=== PATIENT | male | born 1985 | race Caucasian/White ===

== ENCOUNTER 2016-06-06 02:31 | Emergency (ER) | payer MEDICAID ==
[2016-06-06 02:42] VITALS: RESP 20; TEMP 97.7
--- NOTE | 2016-06-06 02:42 | CPEKG ---
Heart Rate: 72 RR Interval: 833 P-R Interval: 160 QRSD Interval: 86 QT Interval: 368 QTC Interval: 403 P [place]: 50 QRS [place]: 21 T Wave [place]: 31 EKG Severity - NORMAL ECG - EKG Impression: SINUS RHYTHM Electronically Signed By: Rafiq Maynard 06-Jun-2016 03:41:59
--- NOTE | 2016-06-06 03:38 | EDPHY ---
H & P Stated Complaint: chest Pain Time Seen by Provider: 06/06/16 03:32 HPI/ROS: CHIEF COMPLAINT: Chest pain HISTORY OF PRESENT ILLNESS: Patient is a 31-year-old homeless man who comes to the emergency department complaining of chest pain. [place] because he began having chest pain. He denies having any significant medical history. He states the pain is now completely resolved. This is never happened to him before. He denies any recent illnesses or infection or trauma. REVIEW OF SYSTEMS: Constitutional: denies: chills, fever, recent illness, recent injury EENTM: denies: blurred vision, double vision, nose congestion Respiratory: denies: cough, shortness of breath Cardiac: See HPI, denies: irregular heart rate, lightheadedness, palpitations Gastrointestinal/Abdominal: denies: abdominal pain, diarrhea, nausea, vomiting, blood streaked stools Genitourinary: denies: dysuria, frequency, hematuria, pain Musculoskeletal: denies: joint pain, muscle pain Skin: denies: lesions, rash, jaundice, bruising Neurological: denies: headache, numbness, paresthesia, tingling, dizziness, weakness Hematologic/Lymphatic: denies: blood clots, easy bleeding, easy bruising Immunologic/allergic: denies: HIV/AIDS, transplant EXAM: GENERAL: Well-appearing, well-nourished and in no acute distress. HEAD: Atraumatic, normocephalic. EYES: Pupils equal round and reactive to light, extraocular movements intact, sclera anicteric, conjunctiva are normal. ENT: TMs normal, nares patent, oropharynx clear without exudates. Moist mucous membranes. NECK: Normal range of motion, supple without lymphadenopathy or JVD. LUNGS: Breath sounds clear to auscultation bilaterally and equal. No wheezes rales or rhonchi. HEART: Regular rate and rhythm without murmurs, rubs or gallops. ABDOMEN: Soft, nontender, normoactive bowel sounds. No guarding, no rebound. No masses appreciated. BACK: No CVA tenderness, no spinal tenderness, step-offs or deformities EXTREMITIES: Normal range of motion, no pitting or edema. No clubbing or cyanosis. NEUROLOGICAL: Cranial nerves II through XII grossly intact. Normal speech, normal gait. 5/5 strength, normal movement in all extremities, normal sensation PSYCH: Normal mood, normal affect. SKIN: Warm, dry, normal turgor, no visible rashes or lesions. Source: Patient, EMS Exam Limitations: No limitations - Personal History Current Tetanus Diphtheria and Acellular Pertussis (TDAP): Yes - Medical/Surgical History Hx Asthma: No Hx Chronic Respiratory Disease: No Hx Diabetes: No Hx Cardiac Disease: No Hx Renal Disease: No Hx Cirrhosis: No Hx Alcoholism: No Hx HIV/AIDS: No Hx Splenectomy or Spleen Trauma: No - Family History Significant Family History: Hypertension - Social History Smoking Status: Never smoked Alcohol Use: Heavy Drug Use: Marijuana Constitutional: Initial Vital Signs Temperature (C) 36.5 C 06/06/16 02:38 Heart Rate 85 06/06/16 02:38 Respiratory Rate 20 06/06/16 02:38 Blood Pressure 126/83 H 06/06/16 02:38 O2 Sat (%) 93 06/06/16 02:38 O2 Delivery Mode Room Air Allergies/Adverse Reactions: No Known Allergies Allergy (Unverified 06/06/16 02:38) Home Medications: Medication Instructions Recorded NK [No Known Home Meds] 06/06/16 Medical Decision Making - Diagnostics EKG Interpretation: An EKG obtained and was read and documented in trace view. Please see trace view for full reading and report. Sinus rhythm, no acute ischemic changes ED Course/Re-evaluation: The patient denies having any symptoms currently. His EKG is reassuring. I suspect he has alternative mode of seeking for detention or transportation. He admits that he has nowhere else to go. Differential Diagnosis: Partial list of the Differential diagnosis considered include but were not limited to; anxiety, arrhythmia, malingering, substance abuse, trauma and although unlikely based on the history and physical exam, I also considered pneumonia, PE, acute coronary disease. I discussed these differential diagnoses and the plan with the patient as well as the usual and expected course. The patient understands that the diagnosis is provisional and that in medicine we are not always correct and that further workup is often warranted. Usual and customary warnings were given. All of the patient's questions were answered. The patient was instructed to return to the emergency department should the symptoms at all worsen or return, otherwise to followup with the physician as we discussed. Departure - Departure Disposition: Home, Routine, Self-Care Clinical Impression: Chest pain Qualifiers: Chest pain type: unspecified Qualified Code(s): R07.9 - Chest pain, unspecified Condition: Fair Instructions: Chest Pain (ED) Referrals: Alfred Casey DO [Medical Doctor] - As per Instructions
[2016-06-06 03:57] VITALS: BP 109/66; PULSE 65; O2SAT 97
== END 2016-06-06 03:56 | disposition home or self-care (01) ==
DX: R07.9 Chest pain, unspecified (principal)